=== PATIENT | female | born 1985 ===

== ENCOUNTER 2021-10-31 10:00 | Day surgery (SDC) | payer OTHER ==
--- NOTE | 2021-10-31 09:38 | Anesthesia Consultation ---
Anesthesia Consult and Med Hx Date of service: 10/31/21 - Airway Anesthetic Teeth Evaluation: Good ROM Head & Neck: Adequate Mental/Hyoid Distance: Adequate Mallampati Class: Class III Intubation Access Assessment: Possibly Difficult - Pre-Operative Health Status ASA Pre-Surgery Classification: ASA1 Proposed Anesthetic Plan: General - Pulmonary Hx Smoking: No Hx Respiratory Symptoms: No - Cardiovascular System Hx Hypertension: No - Central Nervous System CVA: No - Endocrine Hx Renal Disease: No Hx Liver Disease: No Hx Insulin Dependent Diabetes: No Hx Non-Insulin Dependent Diabetes: No Hx Thyroid Disease: No - Other Systems Hx Obesity: No - Additional Comments Anesthesia Medical History Comments: 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
--- NOTE | 2021-10-31 09:39 | Anesthesia Day of Surgery ---
Anesthesia Day of Surgery - Day of Surgery Patient Examined: Yes Patient H&P Reviewed: Yes Patient is NPO: Yes
[~2021-10-31 10:00] MED LIST: ACETAMINOPHEN 500 MG TAB PO SCH; CELECOXIB 200 MG CAP PO SCH; GABAPENTIN 300 MG CAP PO SCH; HYDROcodone/ACETAMINOPHEN 5-325 MG TAB PO PRN; LACTATED RINGERS 1,000 ML IV SCH; MIDAZOLAM 2 MG/2 ML INJ IV SCH; ONDANSETRON 4 MG/2 ML INJ IV PRN; SCOPOLAMINE TRANSDERMAL PATCH 72 HR TD SCH
--- NOTE | 2021-10-31 10:06 | Operative Report ---
Operative Report Operative Report: Preoperative diagnosis: 35-year-old with history of TUAN-2 Postoperative diagnosis: Same Procedure: Exam under anesthesia ,LEEP Surgeon: Dr. Trisha Lemus Anesthesia: GETA Complications: None IV fluids: 1 L crystalloid Urine output: 30 cc clear Estimated blood loss: Less than 10 cc Drains: None Findings: Exam under anesthesia revealed smooth pelvic parametria with no nodularity cobblestoning or masses. The uterus was midline and no adnexal masses were palpable. Rectovaginal septum is smooth. Rectal exam revealed no masses or gross heme. Speculum exam revealed pink vaginal mucosa with loss of rugae, cervix midline, no cervical or vaginal masses appreciated. Procedure: Patient was seen in preop holding area with her daughter where she received patient was counseled about risks benefits and possible complications of the procedure. All alternatives were reviewed. Plan intraoperative and postoperative course discussed in detail. Pictures were used for visualization and education purposes. All questions and concerns were reviewed and then informed consent was obtained. Patient was then taken to the operating room where she is placed in the dorsal supine position. She received excellent general endotracheal anesthesia. Exam under anesthesia and speculum exam revealed the above. 200 cc clear urine was obtained with a red rubber catheter. A speculum was placed in the vaginal vault the cervix identified. Monsel solution was placed in the vaginal vault and the cervix copiously irrigated with Monsel solution to allow for good visualization of cervical dysplasia. The transformation zone is visualized with positive ectropion and a clear delineation of dysplasia approximately 1 cm circumferentially around the cervical os. A loop electrosurgical excision procedure was then done in the usual fashion, all visible cervical dysplasia was removed. An adequate cervical cone biopsy was obtained and sent to pathology. A rollerball was used for a cautery. 2 [id number] sutures were placed in the 3 and 9 o'clock position at the completion of the procedure to assist with hemostasis. Monsel solution was placed in the endocervix. Excellent hemostasis at the completion of the procedure. The speculum was removed from the vaginal vault. Patient's family was notified of her stable condition and intraoperative course at the completion of the procedure. She was extubated and taken to PACU in stable condition. All sponge needle instrument counts were correct x2. She will follow-up in the outpatient setting. Dr Trisha Lemus
[2021-10-31] MEDS ORDERED: FERRIC SUBSULFATE TOPICAL SOLN 8 ML TP ONE ×2 (10:07→11:42)
[2021-10-31] MEDS ORDERED: POTASSIUM IODIDE/IODINE (LUGOLS) 30 ML TP ONE ×2 (10:07→10:54)
[2021-10-31] MEDS ORDERED: LIDOCAINE 2%/EPINEPHRINE 1:200,000 VIAL (20 ML) INFILTRATI ONE (10:07)
[2021-10-31] MEDS ORDERED: LIDOCAINE MPF (2%) 20 MG/1 ML VIAL 5 ML ONE (10:14)
[2021-10-31] MEDS ORDERED: ONDANSETRON 4 MG/2 ML INJ ONE (10:14)
[2021-10-31] MEDS ORDERED: fentaNYL 100 MCG/2 ML INJ ONE (10:15)
[2021-10-31] MEDS ORDERED: propofoL 200 MG/20 ML VIAL IV ONE (10:15)
[2021-10-31] MEDS ORDERED: SODIUM CHLORIDE 0.9% IRR 1,500 ML BOTTLE IR ONE (10:55)
[2021-10-31] MEDS ORDERED: KETOROLAC 30 MG/1 ML INJ ONE (11:20)
[2021-10-31] MEDS ORDERED: dexAMETHasone 20 MG/5 ML VIAL ONE (11:20)
[2021-10-31] MEDS: HYDROmorphone 1 MG/1 ML INJ IV PRN ×2 (11:40→11:50)
[2021-10-31 12:03] VITALS: BP 122/75
--- NOTE | 2021-10-31 13:07 | Post Anesthesia Evaluation ---
- Post Anesthesia Evaluation Patient Participated: Yes Airway Patent: Yes Stable Respiratory Function: Yes Nausea/Vomiting: No Temp > 96.8F: Yes Pain Manageable: Yes Adequeate Hydration: Yes Anesthesia Complications: No
== END 2021-10-31 10:01 | disposition home or self-care (01) ==
LOC: OR 10:00
PROVIDERS: ATTEND Obstetrics & Gynecology
DX: D06.0 Carcinoma in situ of endocervix (principal); N72 Inflammatory disease of cervix uteri; Z79.899 Other long term (current) drug therapy; Z98.890 Other specified postprocedural states
CPT/HCPCS: 57522; 81025; 88307; J1100; J1170; J1885; J2405; J2704; J3010; J7120; J3490; J2250